=== PATIENT | female | born 1950 | race Caucasian/White ===

== ENCOUNTER 2017-04-27 06:07 | Day surgery (SDC) | payer OTHER ==
[~2017-04-27] VITALS: Ht 142.2 cm; Wt 75.0 kg
[~2017-04-27 06:07] MED LIST: CYCLOPENTOLATE HCL 1% 2 ML OPHTHALMIC SOLUTION ONE; FLURBIPROFEN SODIUM 0.03% 2.5 ML OPHTHALMIC SOLUTION ONE; PHENYLEPHRINE HCL 2.5% 2 ML OPHTHALMIC SOLUTION ONE; RINGERS SOLUTION,LACTATED 500 ML IV ONE; TROPICAMIDE 1% 2 ML OPHTHALMIC SOLUTION ONE
[2017-04-27] MEDS ORDERED: EPINEPHrine 1:1,000 [1 MG/ML] AMP IM ONE (06:08)
[2017-04-27] MEDS ORDERED: DEXAMETHASONE SOD PHOS 4 MG/ML VIAL IVP ONE (06:08)
[2017-04-27] MEDS ORDERED: LIDOCAINE HCL/PF 1% 2 ML VIAL INJ ONE (06:08)
[2017-04-27] MEDS ORDERED: POVIDONE-IODINE 10% 15 ML SOLUTION UD TP ONE (06:08)
[2017-04-27] MEDS ORDERED: HYALURONATE SOD/CHONDROITIN SOD 0.5 ML VIAL IO ONE (06:08)
[2017-04-27] MEDS ORDERED: 0.9% SODIUM CHLORIDE 10 ML VIAL IVP ONE (06:08)
[2017-04-27] MEDS ORDERED: BALANCED SALT 15 ML OPHTHALMIC IRRIG.SOLN OS ONE (06:08)
[2017-04-27] MEDS ORDERED: ACETYLCHOLINE CHLORIDE 1 EA INTRAOCULAR SOLUTION KIT IO ONE ×2 (06:08→08:24)
[2017-04-27] MEDS ORDERED: NEOMYCIN/POLYMYXIN B/DEXAMETH 3.5 GM OPHTHALMIC OINTMENT OS ONE (06:08)
[2017-04-27] MEDS ORDERED: HYALURONATE SODIUM 12 MG/ML 0.8 ML SYRINGE IO ONE (06:08)
[2017-04-27] MEDS ORDERED: TETRACAINE HCL VISCOUS 0.5% 5 ML OPHTHALMIC SOLUTION OS ONE (06:08)
[2017-04-27] MEDS ORDERED: CAPT25TA3 PO (06:37)
[2017-04-27] MEDS: FLURBIPROFEN SODIUM 0.03% 2.5 ML OPHTHALMIC SOLUTION OD SCH ×2 (07:02→07:13)
[2017-04-27] MEDS: TROPICAMIDE 1% 2 ML OPHTHALMIC SOLUTION OD SCH ×2 (07:02→07:13)
[2017-04-27] MEDS: CYCLOPENTOLATE HCL 1% 2 ML OPHTHALMIC SOLUTION OD SCH ×2 (07:02→07:13)
[2017-04-27] MEDS: PHENYLEPHRINE HCL 2.5% 2 ML OPHTHALMIC SOLUTION OD SCH ×2 (07:02→07:13)
[2017-04-27] MEDS ORDERED: MIDAZOLAM HCL 2 MG/2 ML VIAL IVP ONE (12:00)
[2017-04-27] MEDS ORDERED: FentaNYL CITRATE-PF 100 MCG/2 ML VIAL IVP ONE (12:00)
== END 2017-04-27 09:15 | disposition home or self-care (01) ==
LOC: SURGERY 06:07
PROVIDERS: ATTEND Ophthalmology
DX: E11.36 Type 2 diabetes mellitus with diabetic cataract (principal); H25.811 Combined forms of age-related cataract, right eye; I10 Essential (primary) hypertension; E78.00 Pure hypercholesterolemia, unspecified; E66.9 Obesity, unspecified; Z98.42 Cataract extraction status, left eye; Z90.49 Acquired absence of other specified parts of digestive tract; Z68.37 Body mass index [BMI] 37.0-37.9, adult
CPT/HCPCS: 66984; 93005; C1780; J0171; J1100; J2250; J3010; J3490 ×2; J7120